=== PATIENT | female | born 1985 | race Two or more races ===

== ENCOUNTER 2016-08-12 02:37 | Inpatient (IN) | payer BC ==
[2016-08-12 03:10] LABS: APPEARANCE,URINE SLIGHTLY-CLOUDY; BILIRUBIN,URINE NEGATIVE (NEGATIVE); GLUCOSE, URINE NEGATIVE (NEGATIVE); KETONES,URINE NEGATIVE (NEGATIVE); LEUKOCYTE ESTERASE,URINE MODERATE (NEGATIVE); NITRITE,URINE NEGATIVE (NEGATIVE); PROTEIN,URINE NEGATIVE (NEGATIVE); URINE SPECIFIC GRAVITY 1.006; UROBILINOGEN,URINE NEGATIVE mg/dL (<2.0)
[2016-08-12 03:24] LABS: URINE BARBITURATES SCREEN NEGATIVE; URINE METHADONE SCREEN NEGATIVE; URINE OPIATES LOW NEGATIVE; URINE PHENCYCLIDINE SCREEN NEGATIVE
[2016-08-12 03:34] LABS: ABSOLUTE EOSINOPHILS # (AUTO) 0.1 10^3/uL (0.0-0.6); ABSOLUTE LYMPHOCYTES (AUTO) 1.4 10^3/uL (0.5-4.7); ABSOLUTE MONOCYTES (AUTO) 0.7 10^3/uL (0.1-1.4); ABSOLUTE NEUT (AUTO) 8.2 10^3/uL (1.7-8.2); BASOPHILS % (AUTO) 0.3 % (0-2); EOSINOPHILS % (AUTO) 0.7 % (0-6); HEMATOCRIT 29.2 % (36.0-47.0); HEMOGLOBIN 9.7 g/dL (12.0-15.5); HGB HCT DIFFERENCE -0.1; LYMPHOCYTES % (AUTO) 13.7 % (13-45); MEAN CORPUSCULAR HEMOGLOBIN 28.4 pg (27.0-33.4); MEAN CORPUSCULAR HGB CONC 33.2 g/dL (32.0-36.0); MEAN CORPUSCULAR VOLUME 85 fl (80-97); MONOCYTES % (AUTO) 7.1 % (3-13); RED BLOOD COUNT 3.42 10^6/uL (3.72-5.28); RED CELL DISTRIBUTION WIDTH 15.2 % (11.5-14.0); SEGMENTED NEUTROPHILS % (AUTO) 78.2 % (42-78); WHITE BLOOD COUNT 10.5 10^3/uL (4.0-10.5)
[2016-08-12 04:32] LABS: ADD HIVPANEL? NO; HIV (1 AND 2) ANTIBODY NEGATIVE (NEGATIVE)
[2016-08-12] MEDS ORDERED: RINGERS SOLUTION,LACTATED 1,000 ML IV ONE (04:32)
[2016-08-12] MEDS ORDERED: RINGERS SOLUTION,LACTATED 1,000 ML IV PRN (04:32)
[2016-08-12] MEDS ORDERED: PENICILLIN G-K 5 MILLION UNIT VIAL ONE ×2 (04:36→07:47)
[2016-08-12] MEDS ORDERED: OXYTOCIN/NORMAL SALINE 20 UNIT/1,000 ML RTUINJ ONE (04:40)
[2016-08-12] MEDS ORDERED: MISOPROSTOL 0.2 MG TABLET ONE (04:40)
[2016-08-12] MEDS ORDERED: LIDOCAINE 1% INJ-PF (10 MG/ML) 30 ML SDV ONE (04:40)
[2016-08-12 04:43] LABS: CHLAM PCR NOT DETECTED (NOT DETECT)
[2016-08-12] MEDS ORDERED: PENICILLIN G POTASSIUM 5,000,000 UNIT in DEXTROSE 5%-WATER 100 ML IV ONE (05:30)
[2016-08-12] MEDS ORDERED: FENTANYL CITRATE INJ/PF 100 MCG/2 ML AMPUL IV ONE (06:44)
[2016-08-12] MEDS ORDERED: FENTANYL CITRATE INJ/PF 100 MCG/2 ML AMPUL ONE (06:45)
--- NOTE | 2016-08-12 06:47 | L&D Progress Notes ---
PROGRESS NOTES Datetime Report Generated by CPN: 08/12/2016 06:47 PROGRESS NOTE Impression: Normal Progression of Labor Procedures: Artificial ROM Plan: Continue Present Management Comment: Pt notes increased pelvic pressure-requesting pain meds-fentanyl now. Expectant management. VAGINAL EXAM Dilatation: 6 Effacement: 100 Station: 0 MEMBRANES Membranes: Ruptured Amniotic Fluid Color: Meconium, Light FETUS A Monitoring: External US FHR Category: Category I SIGNATURE SIGNATURE: [id number] Signature: with User ID: [email or web address]
[2016-08-12] MEDS: PENICILLIN G-K 5 MILLION UNIT VIAL IV SCH ×2 (08:11→11:47)
[2016-08-12] MEDS ORDERED: PENICILLIN G POTASSIUM 2,500,000 UNIT in DEXTROSE 5%-WATER 50 ML IV SCH (08:32)
[2016-08-12] MEDS ORDERED: BENZOCAINE/MENTHOL AEROSOL SPRAY 56 ML TOP PRN (09:52)
[2016-08-12] MEDS ORDERED: MEASLES,MUMPS&RUBELLA VACC/PF 0.5 ML VIAL SUBCUT PRN (09:52)
[2016-08-12] MEDS ORDERED: DIBUCAINE 1% OINTMENT 28 GM TP PRN (09:52)
[2016-08-12] MEDS ORDERED: PROMETHAZINE HCL INJ 25 MG/1 ML VIAL IV PRN (09:52)
[2016-08-12] MEDS ORDERED: PSEUDOEPHEDRINE HCL 30 MG TABLET PO PRN (09:52)
[2016-08-12] MEDS ORDERED: GLYCERIN/WITCH HAZEL LEAF 1 EACH MED..PAD TP PRN (09:52)
[2016-08-12] MEDS ORDERED: DIPHENHYDRAMINE HCL 25 MG CAPSULE PO PRN (09:52)
[2016-08-12] MEDS ORDERED: PROMETHAZINE HCL 25 MG SUPP.RECT PR PRN (09:52)
[2016-08-12] MEDS ORDERED: MAGNESIUM HYDROXIDE SUSP 30 ML UDCUP PO PRN (09:52)
[2016-08-12] MEDS ORDERED: ACETAMINOPHEN 650 MG SUPP.RECT PR PRN (09:52)
[2016-08-12] MEDS ORDERED: PROMETHAZINE HCL 25 MG TABLET PO PRN (09:52)
[2016-08-12] MEDS ORDERED: DIPH/PERTUSS(ACELL)/TETANUS VAC/PF 0.5 ML SYR (>=10YO) IM PRN (09:52)
[2016-08-12] MEDS ORDERED: ACETAMINOPHEN WITH CODEINE #3 TABLET PO PRN (09:52)
[2016-08-12] MEDS ORDERED: NA PHOS,M-B/NA PHOS,DI-BA (ADULT) 133 ML ENEMA PR PRN (09:52)
[2016-08-12] MEDS ORDERED: OXYTOCIN/NORMAL SALINE 1,000 ML IV PRN (09:52)
--- NOTE | 2016-08-12 11:07 | Delivery Summary ---
Del Sum A-C Datetime Report Generated by CPN: 08/12/2016 11:07 DELIVERY PERSONNEL DELIVERY PERSONNEL: [phone] Delivery Doctor:: Ruddy Lanza CNM Nurse Superintendent Service Certified:: Mary Lanza CNM Labor and Delivery Nurse:: Azul Carter RNmarriage performer Nurse:: ANA Santiago Nursery Nurse:: Sharon Chan RN MATERNAL INFORMATION Delivery Anesthesia: None Medications After Delivery: Pitocin Bolus-Please Comment; Pitocin Drip 20 Units/1000ml NSS Estimated Blood Loss (ml): 300 Maternal Complications: None Provider Comments: Care assumed while this patient was pushing. Pt. is a 30yo with no care at 38w6d per stated DEJON. Rubella Immune, HIV neg, GBS unknown (has received 2 dose of PCN). Pt. continued to push after I assumed care and went on to deliver a viable baby girl in straight op presentation. Baby with vigorous respiratory effort and cry at and placed on maternal abdomen. Cord clamped x 2 and cut by FOB after pulsation cessation. Cord blood obtained. Placenta delivered spontaneously intact and sent to lab for eval. Small midline perineal abrasions noted but hemostatic. Fundus firm at U-2 with heavy bleeding x2 clots expressed with fundal massage and bleeding became light. Nursery in attendance for delivery due to light mec and no care. Pt. denied hx of HSV in room prior to delivery and no active lesions noted. However, hx of HSV was reported to admitting nurse and was also told she was on valtrex; however, when facility where pt. stated to have received care was contacted they reported patient has not been seen since december of last year and it was not related. Other labs pending. Baby with small lesions that appear to be consistent with HSV on mons and to be evaluted by porter head. Mother and baby remain in room bonding and stable. LABOR SUMMARY EDC: 08/20/2016 00:00 No. Babies in Womb: 1 Attempted: No Labor Anesthesia: IV Sedation LABOR INFORMATION Reason for Induction: Not Applicable Onset of Labor: 08/12/2016 03:03 Complete Dilatation: 08/12/2016 07:25 Oxytocin: N/A Group B Beta Strep: Unknown Antibiotics # of Doses: 2 Antibiotics Time of Last Dose: 747 Name of Antibiotic Given: Penicillin Steroids Given: None Reason Steroids Not Administered: Not Applicable MEMBRANES Membranes Rupture Method: Artificial Rupture of Membranes: 08/12/2016 06:41 Length of Rupture (hr): 2.17 Amniotic Fluid Color: Moderate Meconium Amniotic Fluid Amount: Moderate Amniotic Fluid Odor: None STAGES OF LABOR Stage 1 hr: 4 Stage 1 min: 22 Stage 2 hr: 1 Stage 2 min: 26 Stage 3 hr: 0 Stage 3 min: 6 Total Time in Labor hr: 5 Total Time in Labor min: 54 VAGINAL DELIVERY Episiotomy: None Laceration Extension: N/A Laceration Type: None Other Laceration: superficial abrasions Laceration Repair: Not Applicable Sponge Count Correct: N/A Sharps Count Correct: Yes CSECTION DELIVERY Primary Indication: N/A Secondary Indication: N/A BABY A INFORMATION Delivery Date/Time: 08/12/2016 08:51 Method of Delivery: Vaginal Born in Route : No : N/A Forceps: N/A Vacuum Extraction: N/A Shoulder Dystocia : No PRESENTATION/POSITION BABY A Presentation: Cephalic Cephalic Presentation: Vertex Vertex Position: Right Occipital Posterior Breech Presentation: N/A PLACENTA INFORMATION BABY A Placenta Delivery Time : 08/12/2016 08:57 Placenta Method of Delivery: Spontaneous Placenta Status: Delivered SCORES BABY A Heart Rate 1 min: >100 bpm Resp Effort 1 min: Good Cry Reflex Irritability 1 min: Cough or Sneeze or Pulls Away Muscle Tone 1 min: Active Motion Color 1 min: Body [place], Extremities Blue SCORE 1 MIN: 9 Heart Rate 5 min: >100 bpm Resp Effort 5 min: Good Cry Reflex Irritability 5 min: Cough or Sneeze or Pulls Away Muscle Tone 5 min: Active Motion Color 5 min: Body [place], Extremities Blue SCORE 5 MIN: 9 INFANT INFORMATION BABY A Gestational Age at Delivery: 38.6 Gestational Status: Early Term- 37- 38.6 Weeks Outcome : Liveborn Infant Condition : Stable Sex: Female IDENTIFICATION BABY A Verification Date/Time: 08/12/2016 09:06 ID Band Number: [id number] Mother's Name Verified: Yes Infant RN Verifying Infant: Titus Landaverde FLOYD Galvan RNC WEIGHT/LENGTH BABY A Infant Birthweight (gm): 3000 Weight (lb): 6 Weight (oz): 10 Length (in): 19.75 Infant Length (cm): 50.17 CORD INFORMATION BABY A No. 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
--- NOTE | 2016-08-12 11:23 | Admission Physical ---
Datetime Report Generated by CPN: 08/12/2016 11:22 CURRENT ADMISSION Chief Complaint: Uterine Contractions Admit Plan: Initiate Labor Protocol ALLERGIES Medication Allergies: No Medication Allergies: latex (08/12/2016) Medication Allergies: latex (10/12/2012) Latex: Latex Allergies Food Allergies: none Environmental Allergies: none OBSTETRICAL HISTORY EDC: 08/20/2016 00:00 : 5 Para: 4 Term: 4 : 0 SAB: 0 IAB: 0 Ectopic: 0 Livin Cesareans: 0 VBACs: 0 Multiple Births: 0 Gestational Diabetes: No Rh Sensitization: No Incompetent Cervix: No ELISA: No Infertility: No ART Treatment: No Uterine Anomaly: No IUGR: No Hx Previous C/S: No Macrosomia: No Hx Loss/Stillborn: No PIH: No Hx : No Placenta Previa/Abruption: No Depression/PP Depression: Yes PTL/PROM: No Post Hemorrhage: No Current Procedures: Ultrasound Obstetrical History Comments: 2003- male;2005- female;2008-male;2009-male SEE RECORDS Alcohol: No Marijuana : No Cocaine: No Other Illicit Drugs: No Cigarettes: Never Smoker. 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 Surgery: No Heart Disease: No Hosp/Surgery: Yes Autoimmune Disorder: No Anesthetic Complications: No Kidney Disease: No Abnormal Pap Smear: No Neuro/Epilepsy: No Psychiatric Disorders: No Other Medical Diseases: No Hepatitis/Liver Disease: No Significant Family History: No Varicosities/Phlebitis: No Trauma/Violence : No Thyroid Dysfunction: No Medical History Comments: hospitalized for 4 INFECTIOUS HISTORY Gonorrhea: No Genital Herpes: Yes Chlamydia: No Tuberculosis: No Syphilis: No Hepatitis: No HIV/AIDS Exposure: No Rash or Viral Illness: No HPV: No Infectious History Comments: Pt states ED stated she had herpes in 2012; No outbreaks PHYSICAL EXAM General: Normal HEENT: Normal Neurologic: Normal Thyroid: Normal Heart: Normal Lungs: Normal Breast: Normal Back: Normal Abdomen: Normal Genitourinary Exam: Normal Extremities: Normal DTRs: Normal Pelvic Type: Adequate Physical Exam Comments: efw 7 pounds [facility] in [place]-recently moved here...awaiting records VAGINAL EXAM Dilatation: 6 Effacement: 100 Station: 0 MEMBRANES Membranes: Ruptured Amniotic Fluid Color: Meconium, Light FETUS A EGA: 38.6 Monitoring: External US FHR Category: Category I Admit Comment: await records- labs drawn in interim PLANS FOR LABOR AND DELIVERY Labor and Delivery: None Pain Management: None Feeding Preference: Breast Benefit of Breast Feed Discussed: Yes Circumcision: N/A INFORMED CONSENT Signature: with User ID: [email or web address]
[2016-08-12] MEDS: FERROUS SULFATE 325 MG TABLET PO SCH ×2 (11:43→17:44)
[2016-08-12] MEDS: FAMOTIDINE 20 MG TABLET PO SCH ×2 (11:43→22:18)
[2016-08-12] MEDS: SENNOSIDES/DOCUSATE 8.6-50 MG 1 EACH TABLET PO SCH (11:43)
[2016-08-12] MEDS: DOCUSATE SODIUM 100 MG CAPSULE PO SCH ×2 (11:43→17:44)
[2016-08-12] MEDS: PRENATAL VITAMIN W-O CA NO5/FE FUMARATE/FA CAPSULE PO SCH (11:43)
[2016-08-12] MEDS: IBUPROFEN 800 MG TABLET PO SCH ×2 (13:05→22:18)
[2016-08-12] MEDS: ACETAMINOPHEN WITH CODEINE #3 TABLET PO PRN ×2 (16:00→20:43)
[2016-08-13] MEDS: IBUPROFEN 800 MG TABLET PO SCH ×3 (05:37→21:15)
[2016-08-13 07:40] LABS: HEMATOCRIT 22.7 % (36.0-47.0); HGB HCT DIFFERENCE -0.5; MEAN CORPUSCULAR HGB CONC 32.6 g/dL (32.0-36.0); MEAN CORPUSCULAR VOLUME 86 fl (80-97); RED BLOOD COUNT 2.65 10^6/uL (3.72-5.28); RED CELL DISTRIBUTION WIDTH 15.4 % (11.5-14.0); WHITE BLOOD COUNT 11.7 10^3/uL (4.0-10.5)
[2016-08-13 07:45] LABS: HEMOGLOBIN 7.4 g/dL (12.0-15.5)
--- NOTE | 2016-08-13 08:07 | PDOC PROGRESS REPORT ---
Subjective-OB Subjective: Post Delivery Day: 30 year old. Denies any needs at this time Doing well, hsb at BS, breast feeding, eating well, voiding, scant bleeding, no c/o Physical Exam (OB) Vital Signs: Temp Pulse Resp BP Pulse Ox 98.4 F 86 18 110/50 L 100 08/13/16 04:33 08/13/16 04:33 08/13/16 04:33 08/13/16 04:33 08/13/16 04:33 Intake & Output 08/12/16 08/13/16 08/14/16 06:59 06:59 06:59 Weight 51.65 kg - Lochia Lochia Amount: Small 10-25 ml Lochia Color: Rubra/Red - Abdomen Description: Soft, Round Hernia Present: No Fundal Description: Firm, Midline Fundal Height: u/u - u/2 Objective-Diagnostic Laboratory: 08/13/16 07:26 08/13/16 07:26 WBC 11.7 H RBC 2.65 L Hgb 7.4 L D Hct 22.7 L MCV 86 MCH 28.0 MCHC 32.6 RDW 15.4 H Plt Count 165 Assessment and Plan(PN) - Assessment and Plan (1) Anemia due to acute blood loss Is this a current diagnosis for this admission?: Yes (2) Delivery normal Is this a current diagnosis for this admission?: Yes - Time Spent with Patient Time with patient: Less than 15 minutes Medications reviewed and adjusted accordingly: Yes - Disposition Anticipated Discharge: Home Within: within 24 hours
[2016-08-13 09:38] LABS: HEPATITIS C VIRUS AB <0.1 s/co ratio (0.0-0.9)
[2016-08-13] MEDS: FERROUS SULFATE 325 MG TABLET PO SCH ×2 (11:06→17:34)
[2016-08-13] MEDS: SENNOSIDES/DOCUSATE 8.6-50 MG 1 EACH TABLET PO SCH (11:06)
[2016-08-13] MEDS: DOCUSATE SODIUM 100 MG CAPSULE PO SCH ×2 (11:06→17:34)
[2016-08-13] MEDS: FAMOTIDINE 20 MG TABLET PO SCH ×2 (11:07→21:15)
[2016-08-13] MEDS: PRENATAL VITAMIN W-O CA NO5/FE FUMARATE/FA CAPSULE PO SCH (13:42)
[2016-08-13] MEDS: ACETAMINOPHEN WITH CODEINE #3 TABLET PO PRN ×2 (15:36→19:38)
[2016-08-14] MEDS: ACETAMINOPHEN WITH CODEINE #3 TABLET PO PRN (02:36)
[2016-08-14] MEDS: IBUPROFEN 800 MG TABLET PO SCH (06:03)
--- NOTE | 2016-08-14 07:55 | PDOC PROGRESS REPORT ---
Subjective-OB Subjective: Post Delivery Day: 30 year old. Denies any needs at this time Doing well, ready to go home, hsb at BS, voiding, scant lochia, breast feeding Physical Exam (OB) Vital Signs: Temp Pulse Resp BP Pulse Ox 98.3 F 81 17 102/51 L 100 08/13/16 19:15 08/13/16 19:15 08/13/16 19:15 08/13/16 19:15 08/13/16 19:15 Intake & Output 08/13/16 08/14/16 08/15/16 06:59 06:59 06:59 Intake Total 430 Balance 430 - PIH/Pre-Eclampsia Clonus: Negative Headache: Absent Epigastric Pain: No Visual Changes: No - Lochia Lochia Amount: Scant < 10 ml Lochia Color: Rubra/Red - Abdomen Description: Flat, Round Hernia Present: No Fundal Description: Firm Fundal Height: u/u - u/2 Objective-Diagnostic Laboratory: 08/13/16 07:26 08/12/16 03:42 Vaginal/Anorectal Group B Streptococcus Culture - Final GROUP B BETA HEMOLYTIC STREPTOCOCCUS RECOVERED Assessment and Plan(PN) - Assessment and Plan (1) Anemia due to acute blood loss Is this a current diagnosis for this admission?: Yes (2) Delivery normal Is this a current diagnosis for this admission?: Yes - Time Spent with Patient Time with patient: Less than 15 minutes Medications reviewed and adjusted accordingly: Yes - Disposition Anticipated Discharge: Home Within: Other Disposition: home today
--- NOTE | 2016-08-14 07:59 | PDOC DISCHARGE SUMMARY ---
Final Diagnosis Discharge Date: 08/14/16 - Final Diagnosis (1) Anemia due to acute blood loss Is this a current diagnosis for this admission?: Yes (2) Delivery normal Is this a current diagnosis for this admission?: Yes Discharge Data - Discharge Medication Home Medications: Acyclovir [Zovirax 200 mg Capsule] 400 mg PO TID #60 capsule 10/12/12 B12/Levomefolate Calcium/B-6 [Folbic Rf Tablet] 1 tab PO DAILY 08/12/16 Ferrous Sulfate [Feosol 325 mg Tablet] 325 mg PO BID 08/12/16 Are518/Iron Fumarate/FA/Dss [ 19 Tablet] 1 tab PO DAILY 08/12/16 Gestational Age: 38.6 Reason(s) for Admission: Onset of Labor Procedures: Ultrasound Intrapartum Procedure(s): Spontaneous Vaginal Delivery - Data Baby 1 Female at 1 minute: 9 at 5 minutes: 9 Weight: 3.005 kg Home with Mother: Yes Complications: No - Diagnosis Test Laboratory: Temp Pulse Resp BP Pulse Ox 98.3 F 81 17 102/51 L 100 08/13/16 19:15 08/13/16 19:15 08/13/16 19:15 08/13/16 19:15 08/13/16 19:15 08/12/16 08/12/16 08/13/16 02:51 03:24 07:26 RBC 3.42 L 2.65 L Hgb 9.7 L 7.4 L D Hct 29.2 L 22.7 L Urine Opiates Screen NEGATIVE - Discharge information/Instructions Discharge Activity: Activity As Tolerated, No Lifting Over 10 Pounds Discharge Diet: As Tolerated, Regular Disposition: HOME, SELF-CARE Follow up with: [facility] in: 4, Weeks
[2016-08-14 09:12] VITALS: BP 105/53
[2016-08-14] MEDS: FAMOTIDINE 20 MG TABLET PO SCH (09:31)
[2016-08-14] MEDS: PRENATAL VITAMIN W-O CA NO5/FE FUMARATE/FA CAPSULE PO SCH (09:32)
[2016-08-14] MEDS: SENNOSIDES/DOCUSATE 8.6-50 MG 1 EACH TABLET PO SCH (09:32)
[2016-08-14] MEDS: FERROUS SULFATE 325 MG TABLET PO SCH (09:32)
[2016-08-14] MEDS: DOCUSATE SODIUM 100 MG CAPSULE PO SCH (09:32)
== END 2016-08-14 10:30 | disposition home or self-care (01) | DRG 774 ==
LOC: LC 02:37 → LR 04:34 → 2S 11:21
PROVIDERS: ADMIT Specialist; ATTEND Specialist
PROC: 10E0XZZ Delivery of Products of Conception, External Approach (ICD-10-PCS; principal; 2016-08-12)
PROC: 4A1HXCZ Monitoring of Products of Conception, Cardiac Rate, External Approach (ICD-10-PCS; 2016-08-12)
DX: O77.0 Labor and delivery complicated by meconium in amniotic fluid (principal); O98.32 Other infections with a predominantly sexual mode of transmission complicating childbirth; D62 Acute posthemorrhagic anemia; Z37.0 Single live birth; A60.00 Herpesviral infection of urogenital system, unspecified; O99.344 Other mental disorders complicating childbirth; O99.02 Anemia complicating childbirth; O70.0 First degree perineal laceration during delivery; F32.9 Major depressive disorder, single episode, unspecified; Z79.899 Other long term (current) drug therapy; Z3A.38 38 weeks gestation of pregnancy; Z88.3 Allergy status to other anti-infective agents
CPT/HCPCS: 36415; 80307; 81005; 85025; 85027; 86592; 86701; 86762; 86803; 86804; 86850; 86900; 86901; 87077; 87081; 87340; 87491; 87591; 88307; J2540; J2590; J3010; J3490

== ENCOUNTER 2018-07-19 18:04 | Outpatient (CLI) | payer MEDICAID ==
[2018-07-19 18:56] LABS: APPEARANCE,URINE SLIGHTLY-CLOUDY; BILIRUBIN,URINE NEGATIVE (NEGATIVE); COLOR,URINE YELLOW; GLUCOSE, URINE NEGATIVE (NEGATIVE); KETONES,URINE NEGATIVE (NEGATIVE); LEUKOCYTE ESTERASE,URINE LARGE (NEGATIVE); NITRITE,URINE NEGATIVE (NEGATIVE); PROTEIN,URINE NEGATIVE (NEGATIVE); URINE SPECIFIC GRAVITY 1.013; UROBILINOGEN,URINE NEGATIVE mg/dL (<2.0)
[2018-07-19 19:07] LABS: URINE AMPHETAMINES SCREEN NEGATIVE; URINE BARBITURATES SCREEN NEGATIVE; URINE BENZODIAZEPINES SCREEN NEGATIVE; URINE COCAINE SCREEN NEGATIVE; URINE MARIJUANA (THC) SCREEN NEGATIVE; URINE METHADONE SCREEN NEGATIVE; URINE PHENCYCLIDINE SCREEN NEGATIVE
[2018-07-19 19:08] LABS: ABSOLUTE EOSINOPHILS # (AUTO) 0.1 10^3/uL (0.0-0.6); ABSOLUTE LYMPHOCYTES (AUTO) 1.3 10^3/uL (0.5-4.7); ABSOLUTE MONOCYTES (AUTO) 0.8 10^3/uL (0.1-1.4); ABSOLUTE NEUT (AUTO) 7.4 10^3/uL (1.7-8.2); BASOPHILS % (AUTO) 0.3 % (0-2); EOSINOPHILS % (AUTO) 1.5 % (0-6); HEMATOCRIT 28.9 % (36.0-47.0); HEMOGLOBIN 9.7 g/dL (12.0-15.5); LYMPHOCYTES % (AUTO) 13.4 % (13-45); MEAN CORPUSCULAR HEMOGLOBIN 27.6 pg (27.0-33.4); MEAN CORPUSCULAR HGB CONC 33.6 g/dL (32.0-36.0); MEAN CORPUSCULAR VOLUME 82 fl (80-97); MONOCYTES % (AUTO) 8.2 % (3-13); PLATELET COUNT 205 10^3/uL (150-450); RED BLOOD COUNT 3.51 10^6/uL (3.72-5.28); RED CELL DISTRIBUTION WIDTH 13.9 % (11.5-14.0); SEGMENTED NEUTROPHILS % (AUTO) 76.6 % (42-78); TOTAL CELLS COUNTED % (AUTO) 100 %; WHITE BLOOD COUNT 9.6 10^3/uL (4.0-10.5)
[2018-07-19 19:40] LABS: BACTERIA (WET MOUNT) 4+ BACTERIA SEEN; T.VAGINALIS (WET MOUNT) NO TRICHOMONAS SEEN; WBCS (WET MOUNT) 3+ WBCS SEEN; YEAST (WET MOUNT) NO YEAST SEEN
[2018-07-19 19:55] LABS: RUBELLA INTERPRETATION POSITIVE
--- NOTE | 2018-07-19 20:25 | Non Stress Test Report ---
Non Stress Test Datetime Report Generated by CPN: 07/19/2018 20:25 DEMOGRAPHIC EGA NST: 34.1 INDICATION Indication for Study: Ordered by Provider URINE RESULTS Urine Ketones - NST: Positive MONITORING Monitor Explained: Monitor Explained; Test Explained; Patient Verbalized Understanding Time on Monitor: 07/19/2018 18:22 Time off Monitor: 07/19/2018 19:35 NST Duration: 73 NST INTERVENTIONS NST Interventions: None Physician Notified NST: Younger BABY A: [id number] BABY A Movement : Present Contraction Frequency : irregular + irritabillity FHR Baseline : 145 Accelerations : 15X15 Decelerations : None Variability : Moderate 6-25bpm NST Review: Meets Criteria for Reactive NST NST Review and Verified By : FLOYD Henley NST Results: Reactive NST REPORT Report Trigger: Send Report
[2018-07-19 20:43] LABS: CHLAM PCR NOT DETECTED (NOT DETECT); GON PCR NOT DETECTED (NOT DETECT)
--- NOTE | 2018-07-19 20:43 | RADIOLOGY REPORT (SQ) ---
EXAM DESCRIPTION: US FOLLOW UP COMPLETED DATE/TME: 07/19/2018 18:29 CLINICAL HISTORY: iup no care COMPARISON: None. FINDINGS: There is a single intrauterine in cephalic presentation. The cervix is closed and measured 3.2 cm in length. heart motion was calculated at 163 bpm. Amniotic fluid index was calculated at 22 cm. Placenta is within normal limits. anatomical survey including three-vessel cord, cord insertion, lateral ventricles, cerebellum, four-chamber heart, stomach, bladder, kidneys are within normal limits. The biparietal diameter measures 8.4 cm corresponding to 33 weeks and four days. Head circumference measured 32 cm corresponding to 35 weeks and three days. Abdominal circumference measured 30 cm corresponding to 33 weeks and five days. Femur length measures 6.5 cm corresponding to 33 weeks and four days. Composite gestational age is of 34 weeks and one day with estimated date of delivery August 29, 2018. Estimated weight at this time is of 2280 +/- 337 g (5 pounds +/- 12 ounces). IMPRESSION: Single live intrauterine of approximately 34 weeks and one day.
[2018-07-21 08:52] LABS: HEPATITS B SURFACE ANTIGEN Negative (Negative)
== END 2018-07-19 20:22 | disposition home or self-care (01) ==
LOC: LC 18:04
PROVIDERS: ATTEND Obstetrics & Gynecology
DX: O36.8390 Maternal care for abnormalities of the fetal heart rate or rhythm, unspecified trimester, not applicable or unspecified (principal); Z91.040 Latex allergy status; O98.512 Other viral diseases complicating pregnancy, second trimester; Z3A.34 34 weeks gestation of pregnancy
CPT/HCPCS: 36415; 59025; 76805; 80307; 81001; 85025; 86592; 86701; 86762; 86850; 86900; 86901; 87081; 87210; 87340; 87491; 87591

== ENCOUNTER 2018-08-29 20:03 | Inpatient (IN) | payer MEDICAID ==
[2018-08-29] MEDS ORDERED: OXYTOCIN/NORMAL SALINE 20 UNIT/1,000 ML RTUINJ ONE (20:20)
[2018-08-29] MEDS ORDERED: LIDOCAINE 1% INJ-PF (10 MG/ML) 30 ML SDV ONE (20:20)
[2018-08-29] MEDS ORDERED: MISOPROSTOL 0.2 MG TABLET ONE (20:20)
[2018-08-29] MEDS ORDERED: OXYTOCIN 10 UNIT/ML VIAL ONE (20:20)
[2018-08-29 20:42] LABS: ABSOLUTE EOSINOPHILS # (AUTO) 0.1 10^3/uL (0.0-0.6); ABSOLUTE LYMPHOCYTES (AUTO) 1.5 10^3/uL (0.5-4.7); ABSOLUTE MONOCYTES (AUTO) 0.6 10^3/uL (0.1-1.4); ABSOLUTE NEUT (AUTO) 7.6 10^3/uL (1.7-8.2); BASOPHILS % (AUTO) 0.4 % (0-2); EOSINOPHILS % (AUTO) 0.6 % (0-6); HEMATOCRIT 33.4 % (36.0-47.0); HEMOGLOBIN 10.9 g/dL (12.0-15.5); LYMPHOCYTES % (AUTO) 15.5 % (13-45); MEAN CORPUSCULAR HEMOGLOBIN 26.9 pg (27.0-33.4); MEAN CORPUSCULAR HGB CONC 32.8 g/dL (32.0-36.0); MEAN CORPUSCULAR VOLUME 82 fl (80-97); MONOCYTES % (AUTO) 6.4 % (3-13); PLATELET COUNT 207 10^3/uL (150-450); RED BLOOD COUNT 4.07 10^6/uL (3.72-5.28); RED CELL DISTRIBUTION WIDTH 16.7 % (11.5-14.0); SEGMENTED NEUTROPHILS % (AUTO) 77.1 % (42-78); TOTAL CELLS COUNTED % (AUTO) 100 %; WHITE BLOOD COUNT 9.8 10^3/uL (4.0-10.5)
[2018-08-29 20:43] LABS: APPEARANCE,URINE SLIGHTLY-CLOUDY; BILIRUBIN,URINE NEGATIVE (NEGATIVE); COLOR,URINE YELLOW; GLUCOSE, URINE NEGATIVE (NEGATIVE); KETONES,URINE NEGATIVE (NEGATIVE); LEUKOCYTE ESTERASE,URINE MODERATE (NEGATIVE); NITRITE,URINE NEGATIVE (NEGATIVE); PROTEIN,URINE NEGATIVE (NEGATIVE); URINE SPECIFIC GRAVITY 1.014; UROBILINOGEN,URINE NEGATIVE mg/dL (<2.0)
--- NOTE | 2018-08-29 20:54 | Admission Physical ---
Datetime Report Generated by CPN: 08/29/2018 20:54 CURRENT ADMISSION Indication for Induction: Not Applicable Admit Impression : Term, Intrauterine ; Active Labor Admit Plan: Admit to Unit; Initiate Labor Protocol ALLERGIES Medication Allergies: No Medication Allergies: latex (07/19/2018) Latex: Latex Allergies Food Allergies: no Environmental Allergies: no OBSTETRICAL HISTORY EDC: 08/29/2018 00:00 : 6 Para: 5 Term: 5 : 0 SAB: 0 IAB: 0 Ectopic: 0 Livin Cesareans: 0 VBACs: 0 Multiple Births: 0 Gestational Diabetes: No Rh Sensitization: No Incompetent Cervix: No ELISA: No Infertility: No ART Treatment: No Uterine Anomaly: No IUGR: No Hx Previous C/S: No Macrosomia: No Hx Loss/Stillborn: No PIH: No Hx : No Placenta Previa/Abruption: No Depression/PP Depression: No PTL/PROM: No Post Hemorrhage: No Current Procedures: None Obstetrical History Comments: did not get care do to time unavailable SEE RECORDS Alcohol: No Marijuana : No Cocaine: No Other Illicit Drugs: No Cigarettes: Never Smoker. 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 Surgery: No Heart Disease: No Hosp/Surgery: Yes Autoimmune Disorder: No Anesthetic Complications: No Kidney Disease: No Abnormal Pap Smear: No Neuro/Epilepsy: No Psychiatric Disorders: No Other Medical Diseases: No Hepatitis/Liver Disease: No Significant Family History: No Varicosities/Phlebitis: No Trauma/Violence : No Thyroid Dysfunction: No Medical History Comments: asthma in high school /hosp for childbirth INFECTIOUS HISTORY Gonorrhea: No Genital Herpes: Yes Chlamydia: No Tuberculosis: No Syphilis: No Hepatitis: No HIV/AIDS Exposure: No Rash or Viral Illness: No HPV: No Infectious History Comments: HSV 5/6years ago, no outbreaks since that one occasion, not taking medications. PHYSICAL EXAM General: Normal HEENT: Normal Neurologic: Normal Thyroid: Normal Heart: Normal Lungs: Normal Breast: Deferred Back: Normal Abdomen: Normal Genitourinary Exam: Normal Extremities: Normal DTRs: Normal Pelvic Type: Adequate Vital Signs: Reviewed VAGINAL EXAM Dilatation: 6 Effacement: 75 Station: -1 MEMBRANES Pooling: Negative Membranes: Intact FETUS A Monitoring: External US FHR- Baseline: 130 Variability: Moderate 6-25bpm Decelerations: None FHR Category: Category I Presentation: Vertex Admit Comment: admit for labor PLANS FOR LABOR AND DELIVERY Labor and Delivery: None Pain Management: Medications Feeding Preference: Breast Benefit of Breast Feed Discussed: Yes Circumcision: N/A INFORMED CONSENT Signature: with User ID: [email or web address]
[2018-08-29 20:59] LABS: URINE AMPHETAMINES SCREEN NEGATIVE; URINE BARBITURATES SCREEN NEGATIVE; URINE BENZODIAZEPINES SCREEN NEGATIVE; URINE COCAINE SCREEN NEGATIVE; URINE MARIJUANA (THC) SCREEN NEGATIVE; URINE METHADONE SCREEN NEGATIVE; URINE PHENCYCLIDINE SCREEN NEGATIVE
[2018-08-29] MEDS ORDERED: NALBUPHINE HCL INJ 10 MG/1 ML AMPULE ONE (21:16)
[2018-08-29] MEDS ORDERED: PROMETHAZINE HCL INJ 25 MG/1 ML VIAL ONE ×2 (21:16→21:17)
[2018-08-29] MEDS ORDERED: BUPIVACAINE HCL 0.25 % INJ/PF (2.5 MG/1 ML) 30 ML VIAL ONE (21:22)
[2018-08-29] MEDS ORDERED: EPHEDRINE SULFATE INJ 50 MG/1 ML AMPULE ONE (21:22)
[2018-08-29] MEDS ORDERED: FENTANYL/BUPIVACAINE/NS/PF 300 MCG/150 ML RTUINJ EPI ONE (21:22)
[2018-08-29] MEDS ORDERED: PSEUDOEPHEDRINE HCL 30 MG TABLET PO PRN (22:47)
[2018-08-29] MEDS ORDERED: ACETAMINOPHEN 650 MG SUPP.RECT PR PRN (22:47)
[2018-08-29] MEDS ORDERED: ACETAMINOPHEN WITH CODEINE #3 TABLET PO PRN (22:47)
[2018-08-29] MEDS ORDERED: MAGNESIUM HYDROXIDE SUSP 30 ML UDCUP PO PRN (22:47)
[2018-08-29] MEDS ORDERED: OXYTOCIN/NORMAL SALINE 20 UNIT/1,000 ML RTUINJ IV PRN (22:47)
[2018-08-29] MEDS ORDERED: DIPH/PERTUSS(ACELL)/TETANUS VAC/PF 0.5 ML SYR (>=10YO) IM PRN (22:47)
[2018-08-29] MEDS ORDERED: ZOLPIDEM TARTRATE 5 MG TABLET PO PRN (22:47)
[2018-08-29] MEDS ORDERED: PROMETHAZINE HCL INJ 25 MG/1 ML VIAL IV PRN (22:47)
[2018-08-29] MEDS ORDERED: BENZOCAINE/MENTHOL AEROSOL SPRAY 56 ML TOP PRN (22:47)
[2018-08-29] MEDS ORDERED: DIPHENHYDRAMINE HCL 25 MG CAPSULE PO PRN (22:47)
[2018-08-29] MEDS ORDERED: DIBUCAINE 1% OINTMENT 56 GM TP PRN (22:47)
[2018-08-29] MEDS ORDERED: PROMETHAZINE HCL 25 MG TABLET PO PRN (22:47)
[2018-08-29] MEDS ORDERED: MEASLES,MUMPS&RUBELLA VACC/PF 0.5 ML VIAL SUBCUT PRN (22:47)
[2018-08-29] MEDS ORDERED: GLYCERIN/WITCH HAZEL LEAF 1 EACH MED..WIPE TP PRN (22:47)
[2018-08-29] MEDS ORDERED: NA PHOS,M-B/NA PHOS,DI-BA (ADULT) 133 ML ENEMA PR PRN (22:47)
[2018-08-29] MEDS ORDERED: PROMETHAZINE HCL 25 MG SUPP.RECT PR PRN (22:47)
[2018-08-30] MEDS ORDERED: IBUPROFEN 800 MG TABLET ONE (00:01)
--- NOTE | 2018-08-30 00:18 | Delivery Summary ---
Del Sum A-C Datetime Report Generated by CPN: 08/30/2018 00:17 DELIVERY PERSONNEL DELIVERY PERSONNEL: [id number] Delivery Doctor:: Jovany Thakkar MD Labor and Delivery Nurse:: Destiny Us RN Labor and Delivery Nurse:: Aria Jacobs RN Nursery Nurse:: Theresa Salazar RN Certified Peer Specialist/BODY MAN: Sydni Lagunas, ST MATERNAL INFORMATION Delivery Anesthesia: Epidural Medications After Delivery: Pitocin Drip 20 Units/1000ml NSS Estimated Blood Loss (ml): 250 Maternal Complications: None LABOR SUMMARY EDC: 08/29/2018 00:00 No. Babies in Womb: 1 LABOR INFORMATION Reason for Induction: Not Applicable Onset of Labor: 08/29/2018 07:00 Complete Dilatation: 08/29/2018 22:07 Group B Beta Strep: 1 NO GROUP B STREPTOCOCCUS RECOVERED Antibiotics # of Doses: 0 Steroids Given: None Reason Steroids Not Administered: Not Applicable MEMBRANES Membranes Rupture Method: Spontaneous Rupture of Membranes: 08/29/2018 22:00 Length of Rupture (hr): 0.42 Amniotic Fluid Color: Clear Amniotic Fluid Amount: Moderate Amniotic Fluid Odor: Normal STAGES OF LABOR Stage 1 hr: 15 Stage 1 min: 7 Stage 2 hr: 0 Stage 2 min: 18 VAGINAL DELIVERY Episiotomy: None Laceration #1: Perineal Laceration Extension #1: First Degree Laceration #2: None Laceration Extension #2: N/A Laceration #3: None Laceration Extension #3: N/A Laceration Repair: Yes Laceration Repair Note: Perineal laceration along old laceration repaire with 3-0 chromic suture Sponge Count Correct: Vaginal Sweep Performed Sharps Count Correct: Yes BABY A INFORMATION Delivery Date/Time: 08/29/2018 22:25 Method of Delivery: Vaginal Born in Route : No : N/A Forceps: N/A Vacuum Extraction: N/A Shoulder Dystocia : No PRESENTATION/POSITION BABY A Presentation: Cephalic Cephalic Presentation: Vertex Vertex Position: Right Occipital Anterior Breech Presentation: N/A PLACENTA INFORMATION BABY A Placenta Method of Delivery: Spontaneous Placenta Status: Delivered INFORMATION BABY A Sex: Male IDENTIFICATION BABY A Infant Verification Date/Time: 08/29/2018 22:46 ID Band Number: [id number] Mother's Name Verified: Yes Infant RN Verifying Infant: NDoyle RN, CGentilin RN WEIGHT/LENGTH BABY A Infant Birthweight (gm): 3260 Weight (lb): 7 Weight (oz): 3 CORD INFORMATION BABY A No. Cord Vessels: 3 Nuchal Cord : N/A Cord Blood Taken: Yes-For Eval (Mom's Blood Type - or O+) ASSESSMENT BABY A Infant Complications: None Physical Findings at Delivery: Within Normal Limits Transferred To: Remains with Mother SIGNATURES Signature: with User ID: [email or web address]
[2018-08-30] MEDS: ACETAMINOPHEN WITH CODEINE #3 TABLET PO PRN ×4 (03:20→19:41)
[2018-08-30] MEDS: IBUPROFEN 800 MG TABLET PO SCH ×3 (06:21→21:22)
[2018-08-30 07:03] LABS: HEMATOCRIT 28.9 % (36.0-47.0); HEMOGLOBIN 9.3 g/dL (12.0-15.5); MEAN CORPUSCULAR HEMOGLOBIN 26.4 pg (27.0-33.4); MEAN CORPUSCULAR HGB CONC 32.3 g/dL (32.0-36.0); MEAN CORPUSCULAR VOLUME 82 fl (80-97); PLATELET COUNT 193 10^3/uL (150-450); RED BLOOD COUNT 3.53 10^6/uL (3.72-5.28); RED CELL DISTRIBUTION WIDTH 16.3 % (11.5-14.0); WHITE BLOOD COUNT 12.2 10^3/uL (4.0-10.5)
--- NOTE | 2018-08-30 09:23 | PDOC PROGRESS REPORT ---
Subjective-OB Progress Note for:: 08/30/18 Subjective: Doing well, no c/o, breast feeding, voiding, ambulating, bleeding normal Physical Exam (OB) Vital Signs: Temp Pulse Resp BP Pulse Ox 98.0 F 71 16 83/38 L 100 08/30/18 07:18 08/30/18 07:18 08/30/18 07:18 08/30/18 07:18 08/30/18 07:18 Intake & Output 08/29/18 08/30/18 08/31/18 06:59 06:59 06:59 Weight 58 kg - PIH/Pre-Eclampsia Headache: Absent Epigastric Pain: No Visual Changes: No - Lochia Lochia Amount: Small 10-25 ml Lochia Color: Rubra/Red - Abdomen Description: Soft, Round Fundal Description: Firm, Midline Fundal Height: u/u - u/2 Objective-Diagnostic Laboratory: 08/30/18 06:51 08/29/18 08/29/18 08/29/18 20:33 20:33 20:33 WBC 9.8 RBC 4.07 Hgb 10.9 L Hct 33.4 L MCV 82 MCH 26.9 L MCHC 32.8 RDW 16.7 H Plt Count 207 Seg Neutrophils % 77.1 Lymphocytes % 15.5 Monocytes % 6.4 Eosinophils % 0.6 Basophils % 0.4 Absolute Neutrophils 7.6 Absolute Lymphocytes 1.5 Absolute Monocytes 0.6 Absolute Eosinophils 0.1 Absolute Basophils 0.0 Urine Color YELLOW Urine Appearance SLIGHTLY-CLOUDY Urine pH 7.0 Ur Specific Shaw 1.014 Urine Protein NEGATIVE Urine Glucose (UA) NEGATIVE Urine Ketones NEGATIVE Urine Blood SMALL H Urine Nitrite NEGATIVE Ur Leukocyte Esterase MODERATE H Blood Type O POSITIVE Antibody Screen NEGATIVE 08/30/18 06:51 WBC 12.2 H RBC 3.53 L Hgb 9.3 L Hct 28.9 L MCV 82 MCH 26.4 L MCHC 32.3 RDW 16.3 H Plt Count 193 Seg Neutrophils % Lymphocytes % Monocytes % Eosinophils % Basophils % Absolute Neutrophils Absolute Lymphocytes Absolute Monocytes Absolute Eosinophils Absolute Basophils Urine Color Urine Appearance Urine pH Ur Specific Shaw Urine Protein Urine Glucose (UA) Urine Ketones Urine Blood Urine Nitrite Ur Leukocyte Esterase Blood Type Antibody Screen Assessment and Plan(PN) - Assessment and Plan (2) Anemia due to acute blood loss Is this a current diagnosis for this admission?: Yes (3) Delivery normal Is this a current diagnosis for this admission?: Yes - Time Spent with Patient Time with patient: Less than 15 minutes Medications reviewed and adjusted accordingly: Yes - Disposition Anticipated Discharge: Home Within: within 24 hours
[2018-08-30] MEDS: VALACYCLOVIR HCL 500 MG TABLET PO SCH (10:05)
[2018-08-30] MEDS: FERROUS SULFATE 325 MG TABLET PO SCH ×2 (10:05→17:25)
[2018-08-30] MEDS: FAMOTIDINE 20 MG TABLET PO SCH ×2 (10:05→21:23)
[2018-08-30] MEDS: PRENATAL VITAMIN W DHA CAPSULE PO SCH (10:05)
[2018-08-30] MEDS: SENNOSIDES/DOCUSATE 8.6-50 MG 1 EACH TABLET PO SCH (10:05)
[2018-08-30] MEDS: DOCUSATE SODIUM 100 MG CAPSULE PO SCH ×2 (10:05→17:24)
[2018-08-30 22:18] LABS: HEMATOCRIT 28.1 % (36.0-47.0); HEMOGLOBIN 9.3 g/dL (12.0-15.5); MEAN CORPUSCULAR HEMOGLOBIN 27.1 pg (27.0-33.4); MEAN CORPUSCULAR VOLUME 82 fl (80-97); PLATELET COUNT 179 10^3/uL (150-450); RED BLOOD COUNT 3.41 10^6/uL (3.72-5.28); RED CELL DISTRIBUTION WIDTH 16.8 % (11.5-14.0); WHITE BLOOD COUNT 6.9 10^3/uL (4.0-10.5)
[2018-08-31] MEDS: IBUPROFEN 800 MG TABLET PO SCH ×2 (05:35→13:24)
[2018-08-31] MEDS: ACETAMINOPHEN WITH CODEINE #3 TABLET PO PRN ×2 (08:36→13:24)
[2018-08-31 09:32] VITALS: BP 102/46
[2018-08-31] MEDS: PRENATAL VITAMIN W DHA CAPSULE PO SCH (10:05)
[2018-08-31] MEDS: VALACYCLOVIR HCL 500 MG TABLET PO SCH (10:05)
[2018-08-31] MEDS: FAMOTIDINE 20 MG TABLET PO SCH (10:05)
[2018-08-31] MEDS: DOCUSATE SODIUM 100 MG CAPSULE PO SCH (10:05)
[2018-08-31] MEDS: FERROUS SULFATE 325 MG TABLET PO SCH (10:05)
[2018-08-31] MEDS: SENNOSIDES/DOCUSATE 8.6-50 MG 1 EACH TABLET PO SCH (10:05)
--- NOTE | 2018-08-31 14:22 | PDOC DISCHARGE SUMMARY ---
Final Diagnosis Discharge Date: 08/31/18 - Final Diagnosis (1) Obstetrical laceration, second degree Is this a current diagnosis for this admission?: Yes (2) Late care Is this a current diagnosis for this admission?: Yes (3) Delivery normal Is this a current diagnosis for this admission?: Yes Discharge Data - Discharge Medication Prescriptions: Ibuprofen [Motrin 800 mg Tablet] 800 mg PO Q8HP PRN #60 tablet PRN Reason: Home Medications: Ibuprofen [Motrin 800 mg Tablet] 800 mg PO Q8HP PRN #60 tablet 08/31/18 Vit/Dha [ Multi + Dha Capsule] 1 cap PO DAILY capsule 08/31/18 Procedures: NST Intrapartum Procedure(s): Spontaneous Vaginal Delivery Complication(s): Laceration-Perineal Laceration-Degree: 1st - Diagnosis Test Laboratory: Temp Pulse Resp BP Pulse Ox 97.6 F 89 15 102/46 L 100 08/31/18 12:44 08/31/18 12:44 08/31/18 12:44 08/31/18 07:10 08/31/18 12:44 08/29/18 08/29/18 08/30/18 20:33 20:33 06:51 RBC 4.07 3.53 L Hgb 10.9 L 9.3 L Hct 33.4 L 28.9 L Urine Opiates Screen NEGATIVE 08/30/18 21:56 RBC 3.41 L Hgb 9.3 L Hct 28.1 L Urine Opiates Screen - Discharge information/Instructions Discharge Activity: Balance Activity w/Rest, Pelvic Rest Discharge Diet: Regular Disposition: HOME, SELF-CARE Follow up with: [facility] in: 4, Weeks
== END 2018-08-31 17:40 | disposition home or self-care (01) | DRG 807 ==
LOC: LC 20:03 → LR 20:21 → 2S 08-30 00:56
PROVIDERS: ADMIT Obstetrics & Gynecology; ATTEND Obstetrics & Gynecology
PROC: 10E0XZZ Delivery of Products of Conception, External Approach (ICD-10-PCS; principal; 2018-08-29)
PROC: 0HQ9XZZ Repair Perineum Skin, External Approach (ICD-10-PCS; 2018-08-29)
DX: O70.0 First degree perineal laceration during delivery (principal); Z37.0 Single live birth; O99.02 Anemia complicating childbirth; D64.9 Anemia, unspecified; Z91.040 Latex allergy status; Z3A.40 40 weeks gestation of pregnancy; Z86.19 Personal history of other infectious and parasitic diseases
CPT/HCPCS: 36415; 80307; 81005; 85025; 85027; 86592; 86850; 86900; 86901; 94760; J2300; J2550; J2590; J3010; J3490

== ENCOUNTER 2018-11-21 15:32 | Emergency (ER) | payer OTHER ==
[2018-11-21 15:46] VITALS: BP 106/53
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
== END 2018-11-21 16:38 | disposition home or self-care (01) ==
LOC: ER 15:32
DX: M54.5 Low back pain (principal); V43.62XA Car passenger injured in collision with other type car in traffic accident, initial encounter
CPT/HCPCS: 99283